=== PATIENT | female | born 1985 | race Caucasian/White ===

== ENCOUNTER 2019-06-05 08:41 | Emergency (ER) | payer BC, OTHER, SELFPAY ==
[2019-06-05] MEDS ORDERED: AZITHROMYCIN 250 MG TAB ONE (10:07)
--- NOTE | 2019-06-05 10:45 | RAD REPORT ---
EXAM DESCRIPTION: RAD - Chest Single View - 06/05/2019 10:34 am CLINICAL HISTORY: CONGESTION Chest pain. COMPARISON: No comparisons FINDINGS: Portable technique limits examination quality. The lungs are grossly clear. The heart is upper limit of normal in size. No displaced fractures. IMPRESSION: No acute intrathoracic process suspected.
--- NOTE | 2019-06-05 11:16 | ER ---
Nurse's Notes [facility] Name: Flakito Wilcox Age: 34 yrs Sex: Female : 1985 Arrival Date: 06/05/2019 Time: 08:42 Bed 8 Private MD: Diagnosis: Acute bronchitis Presentation: 06/05 09:15 Presenting complaint: Patient states: had the flu 2 weeks ago, has had a lot of iw congestion since then and coughed really hard and started having really bad left sided chest pain and got worse this morning , pain is intermittent and sharp. Transition of care: patient was not received from another setting of care. Onset of symptoms was June 05, 2019. Risk Assessment: Do you want to hurt yourself or someone else? Patient reports no desire to harm self or others. Initial Sepsis Screen: Does the patient meet any 2 criteria? No. Patient's initial sepsis screen is negative. Does the patient have a suspected source of infection? No. Patient's initial sepsis screen is negative. Care prior to arrival: None. 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 - Coronavirus screen:: The patient has NOT traveled to [place], [place], or [place] in the past 14 days. Proceed with normal triage process as indicated. - Social history:: Patient/guardian denies using alcohol, street drugs, The patient lives Smoking status: Patient denies any tobacco usage or history of. - Family history:: not pertinent. - Ebola Screening: : Patient negative for fever greater than or equal to 101.5 degrees Fahrenheit, and additional compatible Ebola Virus Disease symptoms Patient denies exposure to infectious person Patient denies travel to an Ebola-affected area in the 21 days before illness onset No symptoms or risks identified at this time. Screenin:42 Abuse screen: Denies threats or abuse. Denies injuries from another. Nutritional sv screening: No deficits noted. Tuberculosis screening: No symptoms or risk factors identified. Fall Risk None identified. Assessment: 09:40 General: Appears in no apparent distress. uncomfortable, well developed, Behavior is sv calm, cooperative, appropriate for age. Pain: Complains of pain in anterior aspect of left upper chest and right lateral posterior chest Pain does not radiate. Pain currently is 5 out of 10 on a pain scale. Quality of pain is described as sharp, Pain began 2-3 days ago. Is intermittent, episodic, Aggravated by coughing. Neuro: Level of Consciousness is awake, alert, obeys commands, Oriented to person, place, time, situation, Moves all extremities. Full function Gait is steady, Speech is normal. Cardiovascular: Reports chest pain, with cough Heart tones S1 S2 present Patient's skin is warm and dry. Respiratory: Reports cough that is productive, hacking, persistent green thick sputum pain with cough Airway is patent Respiratory effort is even, unlabored, Respiratory pattern is regular, symmetrical. Derm: Skin is pink, warm \T\ dry. Musculoskeletal: Range of motion: intact in all extremities. 11:30 Reassessment: Patient appears in no apparent distress at this time. No changes from sv previously documented assessment. Patient and/or family updated on plan of care and expected duration. Pain level reassessed. Patient is alert, oriented x 3, equal unlabored respirations, skin warm/dry/pink. Vital Signs: 09:18 BP 159 / 98; Pulse 92; Resp 18; Temp 97.7; Pulse Ox 99% on R/A; Weight 136.53 kg; iw Height 5 ft. 4 in. (162.56 cm); Pain 5/10; 09:47 BP 122 / 61; Pulse 87; Resp 16; Pulse Ox 99% ; sv 11:03 BP 114 / 99; Pulse 92; Resp 16; Pulse Ox 98% ; sv 09:18 Body Mass Index 51.67 (136.53 kg, 162.56 cm) ED Course: 08:42 Patient arrived in ED. as 09:08 EKG done, by echocardiograph tech. reviewed by Eri Rao MD. at1 09:17 Triage completed. iw 09:18 Arm band placed on. iw 09:37 Eri Rao MD is Attending Physician. ma2 09:40 Kimberlyn Ruiz, AMY is Primary Nurse. sv 09:40 Patient has correct armband on for positive identification. Placed in gown. Bed in low sv position. Call light in reach. Adult w/ patient. Pulse ox on. NIBP on. Door closed. Warm blanket given. Head of bed elevated. 09:43 Patient maintains SpO2 saturation greater than 95% on room air. sv 09:55 ED physician to see patient. sv 10:33 Chest Single View XRAY Sent. sv 10:34 Chest Single View XRAY In Process Unspecified. EDMS 11:30 No provider procedures requiring assistance completed. Patient did not have IV access sv during this emergency room visit. Administered Medications: 11:29 Drug: AZITHromycin 500 mg Route: PO; sv 11:29 Follow up: Response: Medication administered at discharge. sv Outcome: 11:15 Discharge ordered by . ma2 11:30 Discharged to home ambulatory, with family. sv 11:30 Condition: stable 11:30 Discharge instructions given to patient, Instructed on discharge instructions, follow up and referral plans. no drinking with medication, no driving heavy equipment, medication usage, Demonstrated understanding of instructions, follow-up care, medications, Prescriptions given X 4. 11:31 Patient left the ED. sv Signatures: Dispatcher [employer] EDKimberlyn Moreno RN RN sv Martinez, Amelia as Williams, Irene, Esther Santos RN, investigative research specialist EKG Tat1 Eri Rao MD MD ma2 Corrections: (The following items were deleted from the chart) 09:17 09:15 Presenting complaint: Patient states: had the flu 2 weeks ago, has had a lot of iw congestion since then and coughed really hard and started having really bad left sided chest pain and got worse this morning , intermittent iw
--- NOTE | 2019-06-05 11:16 | EDPHYS ---
Physician Documentation [facility] Name: Flakito Wilcox Age: 34 yrs Sex: Female : 1985 Arrival Date: 06/05/2019 Time: 08:42 Bed 8 Private MD: ED Physician Eri Rao HPI: 06/05 10:16 This 34 yrs old Female presents to ER via Ambulatory with complaints of Chest ma2 Pain. 10:16 The patient or guardian reports chest pain that is located primarily in the anterior ma2 chest wall. The pain does not radiate. Associated signs and symptoms: Pertinent positives: cough, Pertinent negatives: lower extremity pain, lightheadedness. The chest pain is described as a pressure. Modifying factors: The symptoms are alleviated by the symptoms are aggravated by breathing. Severity of pain: At its worst the pain was moderate in the emergency department the pain is unchanged. The patient has not experienced similar symptoms in the past. 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 - Coronavirus screen:: The patient has NOT traveled to [place], [place], or [place] in the past 14 days. Proceed with normal triage process as indicated. - Social history:: Patient/guardian denies using alcohol, street drugs, The patient lives Smoking status: Patient denies any tobacco usage or history of. - Family history:: not pertinent. - Ebola Screening: : Patient negative for fever greater than or equal to 101.5 degrees Fahrenheit, and additional compatible Ebola Virus Disease symptoms Patient denies exposure to infectious person Patient denies travel to an Ebola-affected area in the 21 days before illness onset No symptoms or risks identified at this time. ROS: 10:16 Constitutional: Negative for fever, chills, and weight loss. ma2 10:16 All other systems are negative. Exam: 10:16 Constitutional: This is a well developed, well nourished patient who is awake, alert, ma2 and in no acute distress. Head/Face: Normocephalic, atraumatic. Eyes: Pupils equal round and reactive to light, extra-ocular motions intact. Lids and lashes normal. Conjunctiva and sclera are non-icteric and not injected. Cornea within normal limits. Periorbital areas with no swelling, redness, or edema. ENT: Nares patent. No nasal discharge, no septal abnormalities noted. Tympanic membranes are normal and external auditory canals are clear. Oropharynx with no redness, swelling, or masses, exudates, or evidence of obstruction, uvula midline. Mucous membranes moist. Neck: Trachea midline, no thyromegaly or masses palpated, and no cervical lymphadenopathy. Supple, full range of motion without nuchal rigidity, or vertebral point tenderness. No Meningismus. Chest/axilla: Normal chest wall appearance and motion. Nontender with no deformity. No lesions are appreciated. Cardiovascular: Regular rate and rhythm with a normal S1 and S2. No gallops, murmurs, or rubs. Normal PMI, no JVD. No pulse deficits. Respiratory: Lungs have equal breath sounds bilaterally, clear to auscultation and percussion. No rales, rhonchi or wheezes noted. No increased work of breathing, no retractions or nasal flaring. Abdomen/GI: Soft, non-tender, with normal bowel sounds. No distension or tympany. No guarding or rebound. No evidence of tenderness throughout. MS/ Extremity: Pulses equal, no cyanosis. Neurovascular intact. Full, normal range of motion. Neuro: Awake and alert, GCS 15, oriented to person, place, time, and situation. Cranial nerves II-XII grossly intact. Motor strength 5/5 in all extremities. Sensory grossly intact. Cerebellar exam normal. Normal gait. Vital Signs: 09:18 BP 159 / 98; Pulse 92; Resp 18; Temp 97.7; Pulse Ox 99% on R/A; Weight 136.53 kg; iw Height 5 ft. 4 in. (162.56 cm); Pain 5/10; 09:47 BP 122 / 61; Pulse 87; Resp 16; Pulse Ox 99% ; sv 11:03 BP 114 / 99; Pulse 92; Resp 16; Pulse Ox 98% ; sv 09:18 Body Mass Index 51.67 (136.53 kg, 162.56 cm) iw MDM: 09:37 Patient medically screened. ma2 10:16 Differential diagnosis: gastritis, gastroesophageal reflux disease (GERD), ma2 pericarditis, pleurisy, pneumonia, pneumothorax. ALESSIA Risk Score: not applicable. Data reviewed: vital signs, nurses notes. Counseling: I had a detailed discussion with the patient and/or guardian regarding: the historical points, exam findings, and any diagnostic results supporting the discharge/admit diagnosis, the presence of at least one elevated blood pressure reading (>120/80) during this emergency department visit, the need for outpatient follow up. Response to treatment: the patient's symptoms have markedly improved after treatment. 06/05 09:58 Order name: Chest Single View XRAY; Complete Time: 11:24 ma2 06/05 09:33 Order name: EKG; Complete Time: 09:34 sv 06/05 09:33 Order name: EKG - Nurse/Tech; Complete Time: 09:34 sv Administered Medications: 11:29 Drug: AZITHromycin 500 mg Route: PO; sv 11:29 Follow up: Response: Medication administered at discharge. sv Disposition: 06/05/19 11:15 Discharged to Home. Impression: Acute bronchitis. - Condition is Stable. - Discharge Instructions: Acute Bronchitis, Adult. - Prescriptions for Tylenol- Codeine #3 300-30 mg Oral Tablet - take 2 tablet by ORAL route every 6 hours As needed; 30 tablet. Zithromax Z- Manfred 250 mg Oral Tablet - take 1 tablet by ORAL route as directed for 5 days Day 1 - take two (2) tablets one time. Day 2, 3, 4 , 5 take one (1) tablet once daily.; 6 tablet. Medrol (Manfred) 4 mg Oral Tablets, Dose Pack - take 1 tablet by ORAL route as directed - follow package instructions; 1 packet. Albuterol Sulfate 2.5 mg /3 mL (0.083 %) Inhalation Solution for Nebulization - inhale 1 unit by NEBULIZATION route every 8 hours As needed; 1 box. - Medication Reconciliation Form, Thank You Letter, Antibiotic Education, Prescription Opioid Use, Work release form form. - Follow up: Private Physician; When: Tomorrow; Reason: Continuance of care. - Problem is new. - Symptoms are unchanged. Signatures: Dispatcher [employer] Kimberlyn Coker RN RN Madiha Arenas RN RN Eri Blackwood MD MD ma2 Corrections: (The following items were deleted from the chart) 11:31 11:15 06/05/2019 11:15 Discharged to Home. Impression: Acute bronchitis. Condition is sv Stable. Prescriptions for Tylenol-Codeine #3 300-30 mg Oral Tablet - take 2 tablet by ORAL route every 6 hours As needed; 30 tablet, Zithromax Z-Manfred 250 mg Oral Tablet - take 1 tablet by ORAL route as directed for 5 days Day 1 - take two (2) tablets one time. Day 2, 3, 4 , 5 take one (1) tablet once daily.; 6 tablet, Medrol (Manfred) 4 mg Oral Tablets, Dose Pack - take 1 tablet by ORAL route as directed - follow package instructions; 1 packet. and Forms are Medication Reconciliation Form, Thank You Letter, Antibiotic Education, Prescription Opioid Use. Follow up: Private Physician; When: Tomorrow; Reason: Continuance of care. Problem is new. Symptoms are unchanged. ma2
[2019-06-05 11:35] VITALS: TEMP 97.7
[2019-06-05 12:14] VITALS: BP 114/99; O2SAT 98
--- NOTE | 2019-06-05 15:07 | EKG ---
Test Date: 2019-06-05 Test Time: 09:06:42 Supervisor Heading: DONTA MEASUREMENT RESULTS: Intervals: Rate: 86 MS: 150 QRSD: 86 QT: 356 QTc: 426 [place]: P: 40 MS: 150 QRS: 23 T: 37 INTERPRETIVE STATEMENTS: Normal sinus rhythm Normal ECG No previous ECG available for comparison Electronically Signed On 06-05-19 15:06:49 [employer] STRAIGHTENER by Chris Coffman
== END 2019-06-05 11:31 | disposition home or self-care (01) ==
LOC: ER 08:41
DX: J20.9 Acute bronchitis, unspecified (principal)
CPT/HCPCS: 71045; 93005; 99284